=== PATIENT | male | born 1980 | race Caucasian/White ===

== ENCOUNTER → 2017-05-21 | Outpatient (CLI) | payer OTHER ==
[2017-05-21 09:52] LABS: ABSOLUTE BASOPHILS # (AUTO) 0.1 10^3/uL (0.0-0.2); ABSOLUTE EOSINOPHILS # (AUTO) 0.2 10^3/uL (0.0-0.6); ABSOLUTE LYMPHOCYTES (AUTO) 2.8 10^3/uL (0.5-4.7); ABSOLUTE MONOCYTES (AUTO) 0.7 10^3/uL (0.1-1.4); ABSOLUTE NEUT (AUTO) 4.1 10^3/uL (1.7-8.2); BASOPHILS % (AUTO) 0.7 % (0-2); EOSINOPHILS % (AUTO) 2.7 % (0-6); HEMATOCRIT 45.4 % (37.9-51.0); HEMOGLOBIN 15.9 g/dL (13.5-17.0); HGB HCT DIFFERENCE 2.3; MEAN CORPUSCULAR HEMOGLOBIN 31.9 pg (27.0-33.4); MEAN CORPUSCULAR HGB CONC 35.1 g/dL (32.0-36.0); MEAN CORPUSCULAR VOLUME 91 fl (80-97); MONOCYTES % (AUTO) 9.5 % (3-13); RED BLOOD COUNT 4.99 10^6/uL (4.35-5.55); RED CELL DISTRIBUTION WIDTH 13.4 % (11.5-14.0); SEGMENTED NEUTROPHILS % (AUTO) 52.1 % (42-78); WHITE BLOOD COUNT 7.9 10^3/uL (4.0-10.5)
[2017-05-21 09:55] LABS: PROTHROMBIN TIME 13.4 SEC (11.4-15.4)
[2017-05-21 09:56] LABS: PARTIAL THROMBOPLASTIN TIME 31.4 SEC (23.5-35.8)
[2017-05-21 09:59] LABS: APPEARANCE,URINE CLEAR; BILIRUBIN,URINE NEGATIVE (NEGATIVE); GLUCOSE, URINE NEGATIVE (NEGATIVE); KETONES,URINE NEGATIVE (NEGATIVE); LEUKOCYTE ESTERASE,URINE NEGATIVE (NEGATIVE); NITRITE,URINE NEGATIVE (NEGATIVE); PROTEIN,URINE NEGATIVE (NEGATIVE); URINE SPECIFIC GRAVITY 1.012; UROBILINOGEN,URINE NEGATIVE mg/dL (<2.0)
[2017-05-21 10:02] LABS: BACTERIA,URINE TRACE /HPF
== END ==
LOC: OD 08:25
PROVIDERS: ATTEND Physician Assistant
DX: Z79.01 Long term (current) use of anticoagulants (principal)
CPT/HCPCS: 36415; 81001; 85025; 85610; 85730

== ENCOUNTER 2017-06-22 07:36 | Day surgery (SDC) | payer OTHER ==
[2017-06-18 11:30] LABS: HEMATOCRIT 47.2 % (37.9-51.0); HEMOGLOBIN 16.3 g/dL (13.5-17.0); MEAN CORPUSCULAR HEMOGLOBIN 31.3 pg (27.0-33.4); MEAN CORPUSCULAR HGB CONC 34.6 g/dL (32.0-36.0); MEAN CORPUSCULAR VOLUME 91 fl (80-97); PLATELET COUNT 253 10^3/uL (150-450); RED BLOOD COUNT 5.22 10^6/uL (4.35-5.55); RED CELL DISTRIBUTION WIDTH 13.5 % (11.5-14.0); WHITE BLOOD COUNT 9.2 10^3/uL (4.0-10.5)
[2017-06-18 11:40] LABS: APPEARANCE,URINE CLEAR; BILIRUBIN,URINE NEGATIVE (NEGATIVE); COLOR,URINE STRAW; GLUCOSE, URINE NEGATIVE (NEGATIVE); KETONES,URINE NEGATIVE (NEGATIVE); LEUKOCYTE ESTERASE,URINE NEGATIVE (NEGATIVE); NITRITE,URINE NEGATIVE (NEGATIVE); PROTEIN,URINE NEGATIVE (NEGATIVE); URINE SPECIFIC GRAVITY 1.005; UROBILINOGEN,URINE NEGATIVE mg/dL (<2.0)
[2017-06-18 11:46] LABS: INTERNATIONAL RATION (INR) 1.02; PROTHROMBIN TIME 14.1 SEC (11.4-15.4)
--- NOTE | 2017-06-18 11:51 | RADIOLOGY REPORT (SQ) ---
EXAM DESCRIPTION: CHEST PA/LATERAL COMPLETED DATE/TIME: 06/18/2017 11:25 am REASON FOR STUDY: PRE OP COMPARISON: None. EXAM PARAMETERS: NUMBER OF VIEWS: two views TECHNIQUE: Digital Frontal and Lateral radiographic views of the chest acquired. RADIATION DOSE: NA LIMITATIONS: none FINDINGS: LUNGS AND PLEURA: No opacities, masses or pneumothorax. No pleural effusion. MEDIASTINUM AND HILAR STRUCTURES: No masses or contour abnormalities. HEART AND VASCULAR STRUCTURES: Heart normal size. No evidence for failure. BONES: Osteoporotic with lower thoracic kyphoplasties. HARDWARE: None in the chest. OTHER: No other significant finding. IMPRESSION: NO SIGNIFICANT RADIOGRAPHIC FINDING IN THE CHEST. TECHNICAL DOCUMENTATION: JOB ID: [id number] [employer]- All Rights Reserved
--- NOTE | 2017-06-19 12:13 | EKG REPORT ---
SEVERITY:- NORMAL ECG - SINUS RHYTHM : Confirmed by: Cyndi Malone MD 19-Jun-2017 12:12:20
[~2017-06-22 07:36] MED LIST: BUPIVACAINE HCL 0.25% /EPINEPHRINE INJ/PF 30 ML SDV ONE; CLINDAMYCIN 600 MG/D5W RTU 600 MG/50 ML RTUPB IV PRN; LIDOCAINE 1% INJ-PF (10 MG/ML) 30 ML SDV ONE; RINGERS SOLUTION,LACTATED 1,000 ML IV PRN; SODIUM BICARBONATE 8.4% INJ 50 MEQ/50 ML DISP.SYRIN ONE
[2017-06-22] MEDS ORDERED: KETAMINE HCL INJ 500 MG/10 ML VIAL ONE (09:41)
[2017-06-22] MEDS ORDERED: MIDAZOLAM 2 MG/2 ML INJ ONE (09:42)
[2017-06-22] MEDS ORDERED: PROPOFOL INJ 200 MG/20 ML VIAL IV ONE ×2 (09:42→11:24)
[2017-06-22] MEDS ORDERED: FENTANYL CITRATE INJ/PF 100 MCG/2 ML AMPUL ONE ×3 (09:42→12:18)
[2017-06-22] MEDS ORDERED: FENTANYL CITRATE INJ/PF 100 MCG/2 ML AMPUL IV PRN (10:38)
[2017-06-22] MEDS ORDERED: MEPERIDINE HCL/PF INJ 25 MG/1 ML DISP.SYRIN IV PRN (10:38)
[2017-06-22] MEDS ORDERED: PROMETHAZINE HCL INJ 25 MG/1 ML VIAL IV PRN (10:38)
[2017-06-22] MEDS ORDERED: DIPHENHYDRAMINE HCL 50 MG/ML VIAL IV PRN (10:38)
[2017-06-22] MEDS ORDERED: MORPHINE SULFATE 10 MG/ML INJ IV PRN (10:38)
[2017-06-22] MEDS ORDERED: BUPIVACAINE HCL 0.25% /EPINEPHRINE INJ/PF 30 ML SDV ONE (11:22)
[2017-06-22] MEDS ORDERED: CEFAZOLIN INJ 1 GM VIAL ONE (12:03)
[2017-06-22] MEDS ORDERED: CLINDAMYCIN 600 MG/D5W RTU 600 MG/50 ML RTUPB IV ONE (12:09)
[2017-06-22] MEDS ORDERED: OXYCODONE-ACETAMINOPHEN 5-325 MG TABLET PO PRN (12:27)
[2017-06-22] MEDS ORDERED: ONDANSETRON HCL INJ/PF 4 MG/2 ML SDV IV PRN (12:27)
--- NOTE | 2017-06-22 12:43 | OPERATIVE REPORT E ---
Operative Report NAME: ZACH HARTLEY : 1980 AGE: 36Y DATE OF SURGERY: 06/22/2017 ROOM: PREOPERATIVE DIAGNOSIS: Lumbar radiculopathy with chronic back and lower extremity pain. POSTOPERATIVE DIAGNOSIS: Lumbar radiculopathy with chronic back and lower extremity pain. OPERATIVE PROCEDURES: 1. Surgical implantation of right and left spinal cord stimulating leads under fluoroscopic guidance. 2. Implantation of programmable rechargeable pulse generator. 3. Fluoroscopy for needle placement and lead placement. 4. Complex programming of spinal cord stimulator pulse generator. SURGEON: EARL GILLESPIE M.D. SURGICAL ASSISTANTS: DR. ALAN INDICATIONS: Positive successful outpatient spinal cord stimulation trial. ANESTHESIA: MAC. SPECIMENS REMOVED: None. BLOOD LOSS: Minimal, 5 mL. COMPLICATIONS: None. PROCEDURAL NOTE: After obtaining informed consent and advising the patient of the risks and benefits, including serious neurological injury, bleeding, and infection, inadequate pain relief, allergic reaction, and , he was taken to the operating room and placed comfortably in the prone position. He was prepped and draped in the usual fashion with appropriate drying time prior to draping. He was seen and evaluated under fluoroscopy and suitable entrance site over the L2-3, L3-4 interspace was identified. It should be noted that the pulse generator site had been selected at a predetermined location prior to entering the operating room. This site was anesthetized as well with 1% lidocaine and sharp and blunt dissection were performed by Dr. Alan to create a suitable pulse generator pocket. In the midline area, electrocautery was used as necessary for hemostasis. The lumbar fascia was encountered and undermined to create a suitable working region. The spinal needle was then utilized to anesthetize the right and left paraspinal musculature down to the T12-L1 epidural interspace. The 14-gauge Tuohy needles beginning on the right were inserted through the anesthetized paraspinal musculature region and entered into the epidural space using a loss of resistance to saline technique. No hematuria, cerebrospinal fluid, or paresthesias were noted. The electrode was then placed easily within the epidural space. This was then repeated on the left side in a likewise fashion. The electrodes were then advanced up to the junction of the top and middle thirds of the T9 vertebral body in the paramidline location. Trial of stimulation was then initiated after waking the patient. Good stimulation was noted in both the affected back regions as well as both lower extremities. The decision was then made to proceed with the implant. Pursestrings were placed around each needle using 0 Mersilene followed by distal stay sutures for the anchor. The left needle was then removed carefully under fluoroscopic guidance to assure that the lead did not move in location. It should also be noted that lateral views were taken to confirm posterior location of the leads. The Stylette and needle were removed without moving the lead. The anchor was then placed over the electrode and inserted just past the lumbar fascia. The pursestring was tightened and the anchor was secured using the pursestring suture material as well as the distal stay stitch. This was repeated on the right side with similar care so as to not move or advance the electrode. Lead position was checked at the completion of anchoring and was satisfactory. All anchors were then secured with their hex nuts. The tunneling was then performed after anesthetizing the subcutaneous tissue with additional 1% lidocaine with bicarb. The leads were labeled with the left lead going into the slot for 1 through 8 and the right lead going in the slot for 9 through 16. All hex nuts were likewise secured. The pulse generator was placed within the pocket with the labeling facing the skin. Connectivity was assessed and was satisfactory. Decision was made to complete the closures after copious irrigation with Betadine-containing irrigation solution. The lumbar wound had a deep layer with running 2-0 Vicryl followed by a superficial interrupted vertical mattress suture using 3-0 Polysorb. Pulse generator pocket was closed with a simple 3-0 Vicryl using inverted and vertical mattress sutures interrupted. The skin was then taped with Dermabond tape followed by cement. When this was dry, Telfa and Tegaderm were placed over this. He was then taken to the PACU for further postoperative care and monitoring. DICTATING PHYSICIAN: EARL GILLESPIE M.D. [id number] PHY#: [id number] ID: [id number] JOB#: [id number] ACCT: [id number] cc:EARL GILLESPIE M.D. >
--- NOTE | 2017-06-22 15:09 | RADIOLOGY REPORT (SQ) ---
EXAM DESCRIPTION: NO CHG FLUORO; THORACOLUMBAR SPINE AP/LAT COMPLETED DATE/TIME: 06/22/2017 2:28 pm REASON FOR STUDY: SPINAL STIMULATOR PLCMT ASSISTED WITH FLUORO IN OR G89.4 CHRONIC PAIN SYNDROME COMPARISON: None. FLUOROSCOPY TIME: 3.3 minutes. 17 images saved to PACS. TECHNIQUE: Intra-operative images acquired during surgical procedure to evaluate progress. NUMBER OF IMAGES: 17 images. LIMITATIONS: None. FINDINGS: Images acquired during placement of spinal stimulator. IMPRESSION: IMAGE(S) OBTAINED DURING PROCEDURE. COMMENT: Quality ID [id number]: Final reports for procedures using fluoroscopy that document radiation exp osure indices, or exposure time and number of fluorographic images (if radiation exposure indices are not available) Please consult full operative report of the attending physician for description of the procedure. TECHNICAL DOCUMENTATION: JOB ID: [id number] [employer]- All Rights Reserved
--- NOTE | 2017-06-22 15:09 | RADIOLOGY REPORT (SQ) ---
EXAM DESCRIPTION: NO CHG FLUORO; THORACOLUMBAR SPINE AP/LAT COMPLETED DATE/TIME: 06/22/2017 2:28 pm REASON FOR STUDY: SPINAL STIMULATOR PLCMT ASSISTED WITH FLUORO IN OR G89.4 CHRONIC PAIN SYNDROME COMPARISON: None. FLUOROSCOPY TIME: 3.3 minutes. 17 images saved to PACS. TECHNIQUE: Intra-operative images acquired during surgical procedure to evaluate progress. NUMBER OF IMAGES: 17 images. LIMITATIONS: None. FINDINGS: Images acquired during placement of spinal stimulator. IMPRESSION: IMAGE(S) OBTAINED DURING PROCEDURE. COMMENT: Quality ID [id number]: Final reports for procedures using fluoroscopy that document radiation exp osure indices, or exposure time and number of fluorographic images (if radiation exposure indices are not available) Please consult full operative report of the attending physician for description of the procedure. TECHNICAL DOCUMENTATION: JOB ID: [id number] [employer]- All Rights Reserved
[2017-06-22 17:24] VITALS: BP 144/97
== END 2017-06-22 14:05 | disposition home or self-care (01) ==
LOC: OROUT 07:36
PROVIDERS: ATTEND Pain Medicine Interventional Pain Medicine
PROC: 00HU3MZ Insertion of Neurostimulator Lead into Spinal Canal, Percutaneous Approach (ICD-10-PCS; 2017-06-22)
PROC: 0JH70MZ Insertion of Stimulator Generator into Back Subcutaneous Tissue and Fascia, Open Approach (ICD-10-PCS; principal; 2017-06-22 09:30)
DX: G89.4 Chronic pain syndrome (principal); M54.16 Radiculopathy, lumbar region; M51.37 Other intervertebral disc degeneration, lumbosacral region; M43.07 Spondylolysis, lumbosacral region; M54.17 Radiculopathy, lumbosacral region; F17.210 Nicotine dependence, cigarettes, uncomplicated; E66.9 Obesity, unspecified; Z88.0 Allergy status to penicillin; Z79.891 Long term (current) use of opiate analgesic; Z68.37 Body mass index [BMI] 37.0-37.9, adult; Z79.899 Other long term (current) drug therapy
CPT/HCPCS: 63685; 63650; 93005; 36415; 85027; 85610; 85730; 81001; 71020; 72080; 93010; C1820; J2250; J3490 ×3; J3010; J2704; 300; J0690